=== PATIENT | female | born 1935 | race Caucasian/White ===

== ENCOUNTER → 2016-12-02 | Day surgery (SDC) | payer MEDICARE ==
[~2016-12-02] MED LIST: 0.9 % SODIUM CHLORIDE 10 ML VIAL ONE; BUPIVACAINE MPF 0.5% 30 ML VIAL. ONE; IOHEXOL 300 MG/ML 50 ML VIAL. ONE; IV RINGERS SOLUTION,LACTATED 1,000 ML IV ONE; LIDOCAINE 1% PF 30 ML VIAL. ONE; MIDAZOLAM HCL PF 2 MG/2 ML VIAL. ONE; PROPOFOL 20 ML IV ONE
[2016-12-02 12:11] LABS: BASO # 0.1 x10^3/uL (0.0-0.2); BASO % 1 % (0-3); EOS # 0.1 x10^3/uL (0.0-0.7); EOS % 1 % (0-3); HEMATOCRIT 36.5 % (36.0-47.0); HEMOGLOBIN 12.3 g/dL (12.0-15.5); LYMPH # 1.5 x10^3/uL (1.0-4.8); LYMPH % 18 % (24-48); MEAN CORPUSCULAR HEMOGLOBIN 31 pg (25-35); MEAN CORPUSCULAR HGB CONC 34 g/dL (31-37); MEAN CORPUSCULAR VOLUME 93 fL (79-100); MONO # 1.3 x10^3/uL (0.0-1.1); MONO % 15 % (0-9); NEUT # 5.6 x10^3uL (1.8-7.7); NEUT % 66 % (31-73); PLATELET COUNT 302 x10^3/uL (140-400); RED BLOOD COUNT 3.95 x10^6/uL (3.50-5.40); RED CELL DISTRIBUTION WIDTH 14.6 % (11.5-14.5); WHITE BLOOD COUNT 8.4 x10^3/uL (4.0-11.0)
[2016-12-02 12:31] LABS: BILIRUBIN,URINE NEG (NEG); CLARITY,URINE HAZY; COLOR,URINE YELLOW; GLUCOSE,URINE NEG (NEG)
[2016-12-02 12:32] LABS: BACTERIA,URINE 0 /HPF (0-FEW); NITRITE,URINE NEG (NEG); RBC,URINE 0 /HPF (0-2); SQUAMOUS EPITHELIAL CELL,UR OCC /LPF; UROBILINOGEN,URINE 0.2 mg/dL (0.2 mg/dL); WBC,URINE RARE /HPF (0-4)
== END | disposition home or self-care (01) ==
LOC: SURG 11:03
PROVIDERS: ATTEND Anesthesiology Pain Medicine
DX: M48.06 Spinal stenosis, lumbar region (principal); I10 Essential (primary) hypertension; M19.91 Primary osteoarthritis, unspecified site; K21.9 Gastro-esophageal reflux disease without esophagitis; F41.9 Anxiety disorder, unspecified; Z96.651 Presence of right artificial knee joint
CPT/HCPCS: 0275T; 36415; 81001; 85025; 87086; J0690; J2001; J2250; J2704; J3010; J3490; J7120; Q9967